=== PATIENT | female | born 1990 | race Caucasian/White ===

== ENCOUNTER 2021-03-03 12:21 | Inpatient (IN) | payer OTHER ==
[2021-03-03] MEDS ORDERED: hydrALAZINE 20 MG/ML VIAL SLOW IVP PRN ×3 (12:43→20:53)
[2021-03-03 12:50] VITALS: BMI 30.2
[2021-03-03 13:40] LABS: Fetal Membranes Rupture No Membranes Rupture (No Rupture)
[2021-03-03] MEDS ORDERED: Butorphanol Tartrate 1 MG/ML VIAL SLOW IVP PRN (13:57)
[2021-03-03] MEDS ORDERED: Ibuprofen 800 MG TAB PO PRN (13:57)
[2021-03-03] MEDS ORDERED: Promethazine HCl 25 MG/ML VIAL IM PRN ×2 (13:57→19:28)
[2021-03-03] MEDS ORDERED: Lidocaine 1% (PF) 30 ML VIAL SC PRN (13:57)
[2021-03-03] MEDS ORDERED: Methylergonovine 0.2 MG/ML VIAL IM PRN (13:57)
[2021-03-03] MEDS ORDERED: Acetaminophen 500 MG TAB PO PRN (13:57)
[2021-03-03] MEDS ORDERED: Carboprost 250 MCG/ML AMP IM PRN (13:57)
[2021-03-03] MEDS ORDERED: Ondansetron PF 4 MG/2 ML Vial IVP PRN ×2 (13:57→19:28)
[2021-03-03] MEDS ORDERED: NS w/ Oxytocin 30 units 500 ML IVPB SCH (14:00)
[2021-03-03] MEDS ORDERED: Lactated Ringer's 1,000 ML IV SCH (14:00)
[2021-03-03] MEDS ORDERED: NS w/ Oxytocin 30 units 500 ML IV SCH ×2 (14:00)
[2021-03-03 15:16] LABS: Hemoglobin 10.8 g/dL (12.0-15.5); Mean Corpuscular HGB CONC 34.2 g/dL (32.0-36.0); Mean Corpuscular Hemoglobin 30.9 pg (27.0-33.0); Mean Corpuscular Volume 90.3 fl (81.6-98.3); Mean Platelet Volume 10.6 fl (7.4-10.4); Platelet Count 212 10x3/uL (150-450); RBC Distribution Width 13.8 % (11.5-14.5); White Blood Cell (WBC) Count 9.8 10x3/uL (3.5-10.5)
[2021-03-03 15:49] LABS: Hep B Surf Ag Non-Reactive S/CO (NonReactive); Syphilis Antibody Nonreactive (Nonreactive); Syphilis Antibody Index 0.03 S/CO (<1.00 Non-Reactive)
[2021-03-03 15:57] LABS: HBSAg Index 0.18 S/CO (0-0.99)
[2021-03-03] MEDS ORDERED: Fentanyl 2 mcg/Bup 0.1% Cadd 0 ML ONE (16:26)
[2021-03-03 17:09] LABS: SARS-CoV-2 NAA Rapid Test Not Detected (NotDetected)
[2021-03-03] MEDS ORDERED: Fentanyl 2 mcg/Bup 0.1% Cadd 100 ML ONE (17:57)
[2021-03-03] MEDS ORDERED: diphenhydrAMINE 50 MG/ML VIAL IVP PRN (19:28)
[2021-03-03] MEDS ORDERED: ePHEDrine Sulfate 50 MG/10 ML VIAL SLOW IVP PRN (19:28)
[2021-03-03] MEDS ORDERED: Naloxone HCl 0.4 mg/ml Vial IVP PRN ×2 (19:28)
[2021-03-03] MEDS ORDERED: Acetaminophen 325 MG TAB PO PRN (19:28)
[2021-03-03] MEDS ORDERED: Lactated Ringer's 500 ML IV PRN (19:28)
[2021-03-03] MEDS ORDERED: Hydrocerin (Eucerin) Cream 120 gm Jar TOP PRN (19:28)
[2021-03-03] MEDS ORDERED: Communication Order-Pharmacy FS SCH (19:30)
[2021-03-03] MEDS ORDERED: Fentanyl 2 mcg/Bupivacaine 0.1% Cassette 100 ML EPIDURAL SCH (19:30)
[2021-03-03] MEDS ORDERED: Milk Of Magnesia 30 ML UDCUP PO PRN (20:53)
[2021-03-03] MEDS ORDERED: Misoprostol 200 MCG TAB VAG PRN (20:53)
[2021-03-03] MEDS ORDERED: Boostrix 0.5 ML (Tdap) VIAL IM ONE (20:53)
[2021-03-03] MEDS ORDERED: Lanolin Ointment 7 GM TUBE TOP PRN (20:53)
[2021-03-03] MEDS ORDERED: Benzocaine-Menthol 82.5 ML CAN TOP PRN (20:53)
[2021-03-03] MEDS ORDERED: Bisacodyl 10 MG SUPP PR PRN (20:53)
[2021-03-03] MEDS ORDERED: diphenhydrAMINE 25 MG CAP PO PRN (20:53)
[2021-03-04] MEDS ORDERED: traMADol HCl 50 MG TAB PO PRN ×2 (00:05)
[2021-03-04] MEDS: Ibuprofen 800 MG TAB PO SCH ×4 (05:06→23:21)
[2021-03-04] MEDS: Docusate Calcium (SURFAK) 240 MG CAP PO SCH ×3 (05:07→23:21)
[2021-03-04] MEDS: Ferrous Sulfate 325 MG TAB PO SCH ×2 (08:51→18:07)
[2021-03-05] MEDS: Ibuprofen 800 MG TAB PO SCH ×2 (06:15→14:18)
[2021-03-05 07:59] VITALS: BP 99/54; TEMP 98.2
[2021-03-05] MEDS: Ferrous Sulfate 325 MG TAB PO SCH ×2 (08:20→17:36)
[2021-03-05] MEDS: Docusate Calcium (SURFAK) 240 MG CAP PO SCH (08:24)
== END 2021-03-05 17:30 | disposition home or self-care (01) | DRG 807 ==
LOC: CSHLD/OP 12:21 → CSHLD 14:29 → CSHPP 23:46
PROVIDERS: ADMIT Obstetrics & Gynecology; ATTEND Obstetrics & Gynecology
PROC: 10E0XZZ Delivery of Products of Conception, External Approach (ICD-10-PCS; principal; 2021-03-04)
PROC: 0HQ9XZZ Repair Perineum Skin, External Approach (ICD-10-PCS; 2021-03-04)
PROC: 10H07YZ Insertion of Other Device into Products of Conception, Via Natural or Artificial Opening (ICD-10-PCS; 2021-03-04)
PROC: 3E0334Z Introduction of Serum, Toxoid and Vaccine into Peripheral Vein, Percutaneous Approach (ICD-10-PCS; 2021-03-04)
DX: O99.344 Other mental disorders complicating childbirth (principal); Z37.0 Single live birth; F41.9 Anxiety disorder, unspecified; Z3A.39 39 weeks gestation of pregnancy; Z90.89 Acquired absence of other organs; Z67.11 Type A blood, Rh negative; O77.0 Labor and delivery complicated by meconium in amniotic fluid; O70.0 First degree perineal laceration during delivery
CPT/HCPCS: 36415; 51702; 84112; 85027; 85461; 86780; 86850; 86900; 86901; 87340; 90384; 96372; 99285; J2590; U0002